=== PATIENT | female | born 1960 | race Caucasian/White ===

== ENCOUNTER → 2016-04-06 | Outpatient (CLI) | payer OTHER ==
--- NOTE | 2016-04-06 14:34 | DX ---
Right foot, 3 views History: Fourth toe trauma, pain. Findings: Oblique fracture of the right fourth toe proximal phalanx extending through the distal cor douglas into the articular surface along the medial margin, consistent with a nondisplaced intra-articula r fracture. First through third and fifth toes demonstrate no additional fractures. Metatarsals appea r intact. No definite tarsal bone fracture. Impression: Oblique nondisplaced intra-articular fracture of the right fourth toe proximal phalanx e xtending into the proximal interphalangeal joint.
== END ==
LOC: BMCIMAGING 12:40
PROVIDERS: ATTEND Emergency Medicine
DX: S92.514A Nondisplaced fracture of proximal phalanx of right lesser toe(s), initial encounter for closed fracture (principal)

== ENCOUNTER → 2016-05-01 | Outpatient (CLI) | payer OTHER | LOC: FIMAGING 09:19 | DX: Z12.31 Encounter for screening mammogram for malignant neoplasm of breast (principal); Z80.3 Family history of malignant neoplasm of breast | CPT/HCPCS: G0202 ==

== ENCOUNTER → 2017-05-20 | Outpatient (CLI) | payer OTHER | LOC: FIMAGING 10:45 | PROVIDERS: ATTEND Internal Medicine | DX: Z12.31 Encounter for screening mammogram for malignant neoplasm of breast (principal); Z80.3 Family history of malignant neoplasm of breast ==

== ENCOUNTER → 2018-06-21 | Outpatient (CLI) | payer OTHER | LOC: FIMAGING 11:13 | PROVIDERS: ATTEND Internal Medicine | DX: Z12.31 Encounter for screening mammogram for malignant neoplasm of breast (principal); Z80.3 Family history of malignant neoplasm of breast ==